=== PATIENT | male | born 1985 | race American Indian/Alaskan Native ===

== ENCOUNTER 2021-12-09 06:44 | Emergency (ER) | payer SELFPAY ==
--- NOTE | 2021-12-09 11:42 | Emergency Department Report ---
ED Psych HPI - General Chief Complaint: Abdominal Pain Stated Complaint: DRUG DETOX Time Seen by Provider: 12/09/21 11:13 Source: patient Mode of arrival: Ambulatory Limitations: No Limitations - History of Present Illness Initial Comments: 36-year male with no significant past medical history presents to the hospital requesting help with cocaine addiction. Last used this morning. Patient denies any physical complaints including chest pain, shortness breath, abdominal pain, headache, weakness, fatigue. He denies other substance abuse or addiction. He has a place to live. No reports of suicidal ideation, homicidal ideation, or psychosis. Patient denies previous rehab and states he is here because he is tired of abusing cocaine and wants help - Related Data Allergies Allergy/AdvReac Type Severity Reaction Status Date / Time No Known Allergies Allergy Verified 12/09/21 08:11 ED Review of Systems ROS: Stated complaint: DRUG DETOX Other details as noted in HPI Comment: All other systems reviewed and negative ED Past Medical Hx - Social History Smoking Status: Former Smoker ED Physical Exam - General Limitations: No Limitations - Other Other exam information: General: No acute distress Head: Atraumatic Eyes: normal appearance ENT: Moist mucous membranes Neck: Normal appearance, no midline tenderness Chest: Clear to auscultation bilaterally CV: Regular rate and rhythm Abdomen: Soft, normal bowel sounds, nontender, nondistended, no rebound or gu arding Back: Normal inspection Extremity: Normal inspection, full range of motion Neuro: Alert O x 3, no facial asymmetry, speech clear, no gross motor sensory deficit Psych: Appropriate behavior Skin: No rash ED Course Vital Signs 12/09/21 08:09 Temperature 97 F L Pulse Rate 95 H Respiratory 18 Rate Blood Pressure 91/70 O2 Sat by Pulse 99 Oximetry - Reevaluation(s) Reevaluation #1: 12/09/21 11:42 Repeat blood pressure 134/64 heart rate 85 ED Medical Decision Making - Medical Decision Making 36-year old male with cocaine abuse/addiction presents to the hospital requesting detox. He denies any other psychiatric or physical complaints. Patient does not meet criteria for 1013. Repeat blood pressure in normal range without intervention. case discussed with mental health medical reception Queta will provide outpatient resources. Critical Care Time: No Critical care attestation.: If time is entered above; I have spent that time in minutes in the direct care of this critically ill patient, excluding procedure time. ED Disposition Clinical Impression: Cocaine abuse Disposition: 01 HOME / SELF CARE / HOMELESS Is pt being admited?: No Does the pt Need Aspirin: No Condition: Stable Instructions: Stimulant Use Disorder-Cocaine Additional Instructions: In case of an emergency, please contact the following numbers: [place] Crisis and Access Line: Number: Crisis Text Line: (Text START) Number: 727253 Suicide Prevention Line: Number: Emergency Number: 911 SUBSTANCE ABUSE PROGRAMS: [facility]: Location: [place], [place] [employer] [facility] Address: [address] [place] [address] [facility] Address: [address] [place] [address] [facility]: Address: [address] [place] [address] [facility]: Address: [address] [place] [address] [facility] Address: [address] [place] [id number]. Please contact above numbers to attempt placement into free based program. Medicaid Programs: [facility]: Address: [address] [place] [address] [facility]: Address: [address] [place] [id number] Referrals: MARTINEZ GUPTA MD [Primary Care Provider] - 3-5 Days [facility] [Provider Group] - 3-5 Days Time of Disposition: 12:48
[2021-12-09 14:07] VITALS: BP 130/75
== END 2021-12-09 14:07 | disposition home or self-care (01) ==
LOC: ED 06:44
DX: F14.10 Cocaine abuse, uncomplicated (principal); Z87.891 Personal history of nicotine dependence
CPT/HCPCS: 99282